=== PATIENT | female | born 1965 | race Caucasian/White ===

== ENCOUNTER 2018-02-15 14:28 | Outpatient (CLI) | payer SELFPAY ==
--- NOTE | 2018-02-18 15:08 | MMO ---
BILATERAL SCREENING MAMMOGRAM: Date: 02/15/18 INDICATION: Annual exam. COMPARISON: Prior exam dated 12/28/15. FINDINGS: Interpretation of this exam was assisted with computer-aided detection. There are scattered fibroglandular elements bilaterally. No suspicious mass, cluster of microcalcifications, or area of architectural distortion is evident. IMPRESSION: BIRADS 1: Negative Recommend routine annual mammographic screening. POS: DORI
== END 2018-02-15 14:29 | disposition home or self-care (01) ==
LOC: SCSMAMMO 14:28
PROVIDERS: ATTEND Family Medicine
DX: Z12.31 Encounter for screening mammogram for malignant neoplasm of breast (principal)
CPT/HCPCS: 77067

== ENCOUNTER 2018-06-12 22:47 | Emergency (ER) | payer SELFPAY ==
--- NOTE | 2018-06-12 23:57 | RAD ---
LEFT KNEE: 06/12/18 Four views. INDICATIONS: Fall with injury to knee. Knee pain. Mild degenerative changes noted with mild spurring from the lateral femoral and tibial condyles. Mini mal spurring from the patella. No evidence of fracture. No evidence of joint effusion. IMPRESSION: No acute abnormality. POS: FAUSTINO
--- NOTE | 2018-06-12 23:58 | RAD ---
LEFT TIBIA AND FIBULA: 06/12/18 Two views. HISTORY: Fall with injury. No evidence of fracture. No acute osseous abnormality seen. IMPRESSION: No evidence of acute abnormality. POS: DORI
== END 2018-06-13 01:35 | disposition home or self-care (01) ==
LOC: ERS 22:47
DX: S80.02XA Contusion of left knee, initial encounter (principal); S80.12XA Contusion of left lower leg, initial encounter; I10 Essential (primary) hypertension; Z79.899 Other long term (current) drug therapy; V80.010A Animal-rider injured by fall from or being thrown from horse in noncollision accident, initial encounter

== ENCOUNTER 2019-07-05 12:15 | Outpatient (CLI) | payer SELFPAY ==
--- NOTE | 2019-07-05 12:34 | RAD ---
EXAM: XR Hip Rt 2-3 View PROVIDED CLINICAL HISTORY: Pain FINDINGS: There is no evidence for fracture or other acute osseous abnormality. Alignment appears anatomic. Thalia nt spaces appear preserved. Osteophyte formation is seen involving the right acetabulum. IMPRESSION: No evidence for an acute osseous abnormality. Mild right hip degenerative changes are seen.
== END 2019-07-05 12:16 | disposition home or self-care (01) ==
LOC: BICRAD 12:15
PROVIDERS: ATTEND Family Medicine
DX: M25.551 Pain in right hip (principal); M16.11 Unilateral primary osteoarthritis, right hip

== ENCOUNTER 2020-05-11 12:00 | Outpatient (CLI) | payer OTHER ==
--- NOTE | 2020-05-11 12:37 | RAD ---
Exam: XR Ankle Rt 3 View STANDARD HISTORY: Right ankle pain. Bruising and swelling. COMPARISON: 02/08/2013 FINDINGS: Subcutaneous soft tissue swelling is seen about the ankle. No acute fracture, dislocation, or other acute osseous abnormality is identified. A corticated osseou s density seen inferior to the medial malleolus which may represent a tiny remote avulsion injury. A plantar calcaneal enthesophyte is identified. Incomplete visualization of a healed fracture right f ibula is noted. Views of the ankle are stable compared to prior study. IMPRESSION: Subcutaneous soft tissue swelling without evidence of an acute osseous abnormality.
== END 2020-05-11 12:01 | disposition home or self-care (01) ==
LOC: BICRAD 12:00
PROVIDERS: ATTEND Nurse Practitioner Family
DX: M25.571 Pain in right ankle and joints of right foot (principal); M79.89 Other specified soft tissue disorders

== ENCOUNTER 2020-07-26 10:03 | Outpatient (CLI) | payer OTHER ==
--- NOTE | 2020-07-26 10:43 | RAD ---
RIGHT ANKLE 3 VIEWS: HISTORY: right ankle pain COMPARISON: 05/11/2020 FINDINGS: Soft tissue swelling is present. The ankle mortise is maintained. No acute fracture or dislocation is identified. There is a old healed fracture of the shaft of the right fibula. A small well-corticated bony density inferior to the medial malleolus is again seen, likely old avulsion inju ry. A plantar calcaneal spur is again seen.
== END 2020-07-26 10:04 | disposition home or self-care (01) ==
LOC: BICRAD 10:03
PROVIDERS: ATTEND Family Medicine
DX: M25.571 Pain in right ankle and joints of right foot (principal)

== ENCOUNTER 2021-05-16 14:27 | Outpatient (CLI) | payer OTHER | END 2021-05-16 14:28 | disposition home or self-care (01) | LOC: BICRAD 14:27 | PROVIDERS: ATTEND Family Medicine | DX: M25.531 Pain in right wrist (principal) ==

== ENCOUNTER 2022-06-12 12:02 | Outpatient (CLI) | payer OTHER | END 2022-06-12 12:03 | disposition home or self-care (01) | LOC: BICRAD 12:02 | PROVIDERS: ATTEND Family Medicine | DX: M25.551 Pain in right hip (principal) ==

== ENCOUNTER 2022-12-03 14:48 | Outpatient (CLI) | payer OTHER | END 2022-12-03 14:49 | disposition home or self-care (01) | LOC: BICRAD 14:48 | PROVIDERS: ATTEND Nurse Practitioner Family | DX: R06.89 Other abnormalities of breathing (principal); J98.4 Other disorders of lung | CPT/HCPCS: 71046 ==

== ENCOUNTER 2025-11-01 13:50 | Outpatient (CLI) | payer OTHER | END 2025-11-01 13:51 | disposition home or self-care (01) | LOC: BICMAMMO 13:50 | PROVIDERS: ATTEND Family Medicine | DX: M81.0 Age-related osteoporosis without current pathological fracture (principal); M85.88 Other specified disorders of bone density and structure, other site | CPT/HCPCS: 77080 ==

== ENCOUNTER 2025-11-09 13:09 | Outpatient (CLI) | payer OTHER | END 2025-11-09 13:10 | disposition home or self-care (01) | PROVIDERS: ATTEND Internal Medicine Interventional Cardiology | DX: I10 Essential (primary) hypertension (principal); I49.3 Ventricular premature depolarization; R42 Dizziness and giddiness | CPT/HCPCS: 93017 ==